=== PATIENT | male | born 1955 | race Caucasian/White ===

== ENCOUNTER → 2023-08-04 | Outpatient (CLI) | payer OTHER | LOC: M RAD 10:59 | PROVIDERS: ATTEND Nurse Practitioner Family | DX: N18.31 Chronic kidney disease, stage 3a (principal); N28.1 Cyst of kidney, acquired ==

== ENCOUNTER → 2023-12-12 | Outpatient (CLI) | payer OTHER | LOC: M RAD 08:34 | PROVIDERS: ATTEND Internal Medicine Nephrology | DX: I70.1 Atherosclerosis of renal artery (principal); N28.1 Cyst of kidney, acquired ==

== ENCOUNTER → 2023-12-20 | Outpatient (REF) | payer OTHER ==
[2023-12-20 13:33] LABS: PERCENT SATURATION 36.9 % (19.7-50.0)
[2023-12-20 13:36] LABS: FERRITIN 176.9 NG/ML (10.5-307.3)
== END ==
LOC: M LAB REF 12:49
PROVIDERS: ATTEND Nurse Practitioner Family
DX: N18.9 Chronic kidney disease, unspecified (principal); D63.1 Anemia in chronic kidney disease

== ENCOUNTER 2024-01-26 11:34 | Day surgery (SDC) | payer OTHER ==
[~2024-01-26] VITALS: Ht 170.2 cm; Wt 72.8 kg
[~2024-01-26 11:34] MED LIST: ATOR1TAB21 PO; DICL50TAB PO; METO1TAB87 PO; MULT-90 PO; NS 1,000 ML IV ONE; OMEP-173 PO
[2024-01-26] MEDS ORDERED: fentaNYL 100 MCG/2 ML INJECTION As Ordered ONE (12:22)
[2024-01-26] MEDS ORDERED: propofoL 500 MG/50 ML VIAL As Ordered ONE (12:23)
[2024-01-26] MEDS ORDERED: GLYCOPYRROLATE INJ 0.2 MG/ML 2 ML VIAL As Ordered ONE (12:33)
[2024-01-26] MEDS ORDERED: LIDOCAINE 2% 100MG/5ML SDV (FOR ANES.) As Ordered ONE (12:34)
[2024-01-26] MEDS ORDERED: PHENYLephrine 500MCG 5ML (100MCG/ML) SYRINGE As Ordered ONE (13:02)
[2024-01-26] MEDS ORDERED: propofoL 200 MG/20 ML VIAL As Ordered ONE (13:02)
[2024-01-26 13:17] VITALS: TEMP 97.4
[2024-01-26 13:32] VITALS: BP 112/78; O2SAT 98
== END 2024-01-26 13:43 | disposition home or self-care (01) ==
LOC: M OPP 11:34
PROVIDERS: ATTEND Internal Medicine Gastroenterology
DX: K63.5 Polyp of colon (principal); K57.30 Diverticulosis of large intestine without perforation or abscess without bleeding; Z86.0100 Personal history of colon polyps, unspecified; D64.9 Anemia, unspecified; K64.8 Other hemorrhoids; K22.70 Barrett's esophagus without dysplasia; K22.89 Other specified disease of esophagus; K44.9 Diaphragmatic hernia without obstruction or gangrene; I10 Essential (primary) hypertension; E78.5 Hyperlipidemia, unspecified; K21.9 Gastro-esophageal reflux disease without esophagitis; Z88.0 Allergy status to penicillin; Z79.899 Other long term (current) drug therapy
CPT/HCPCS: 43239; 45385; 88305; J1596; J2371; J3010

== ENCOUNTER → 2024-01-29 | Outpatient (CLI) | payer OTHER ==
[~2024-01-29] MED LIST changes: +E-Z-PAQUE 96% w/w SUSP 176GM BTL As Ordered ONE; -NS 1,000 ML IV ONE
== END ==
LOC: M RAD 10:20
PROVIDERS: ATTEND Physician Assistant Medical
DX: D64.9 Anemia, unspecified (principal)

== ENCOUNTER → 2024-02-07 | Outpatient (REF) | payer OTHER ==
[~2024-02-07] MED LIST changes: -E-Z-PAQUE 96% w/w SUSP 176GM BTL As Ordered ONE
[2024-02-07 18:42] LABS: PERCENT SATURATION 23.5 % (19.7-50.0)
== END ==
LOC: M LAB REF 17:37
PROVIDERS: ATTEND Internal Medicine Nephrology
DX: D50.9 Iron deficiency anemia, unspecified (principal)

== ENCOUNTER → 2024-03-14 | Outpatient (REF) | payer OTHER ==
[2024-03-14 18:05] LABS: APPEARANCE, URINE CLEAR (CLEAR); BACTERIA, URINE AUTO NEGATIVE (NEGATIVE); BILIRUBIN, URINE AUTO NEGATIVE (NEGATIVE); BLOOD, URINE BLOOD NEGATIVE (NEGATIVE); COLOR, URINE STRAW (YELLOW); GLUCOSE, URINE (UA) AUTO NEGATIVE (NEGATIVE); KETONE, URINE AUTO NEGATIVE (NEGATIVE); LEUKOCYTE ESTERASE, URINE AUTO NEGATIVE (NEGATIVE); MUCUS, URINE SMALL (NEGATIVE); NITRITE, URINE AUTO NEGATIVE (NEGATIVE); PROTEIN, URINE AUTO NEGATIVE (NEGATIVE); RBC, URINE AUTO 1 /HPF (0-3); SPECIFIC GRAVITY URINE AUTO 1.005 (1.002-1.035); SQUAMOUS EPITHELIAL CELL UR AU 0 /HPF (0-6); UROBILINOGEN, URINE AUTO 0.2 mg/dL (0.0-2.0); WBC, URINE AUTO 0 /HPF (0-3)
== END ==
LOC: M SMT 16:57
PROVIDERS: ATTEND Nurse Practitioner Family
DX: R36.1 Hematospermia (principal)

== ENCOUNTER → 2024-06-04 | Outpatient (CLI) | payer MEDICARE, OTHER | LOC: M EKG 13:30 | PROVIDERS: ATTEND Internal Medicine Cardiovascular Disease | DX: Z53.21 Procedure and treatment not carried out due to patient leaving prior to being seen by health care provider (principal) ==

== ENCOUNTER → 2024-08-08 | Outpatient (CLI) | payer MEDICARE | LOC: M SLEEP HO 11:24 | PROVIDERS: ATTEND Internal Medicine Cardiovascular Disease | DX: J98.4 Other disorders of lung (principal); G47.33 Obstructive sleep apnea (adult) (pediatric) ==